=== PATIENT | female | born 1980 | race African-American/Black ===

== ENCOUNTER 2020-04-04 16:54 | Emergency (ER) | payer OTHER ==
[~2020-04-04] VITALS: Ht 162.6 cm; Wt 78.9 kg
[2020-04-04 16:55] VITALS: BP 167/105
[2020-04-04 17:44] LABS: APPEARANCE,URINE SLIGHTLY CLOUDY; BASOPHILS % (AUTO) 1.9 % (0.0-2.0); BILIRUBIN, URINE NEGATIVE (NEGATIVE); EOSINOPHILS % (AUTO) 1.6 % (0.0-3.0); GLUCOSE, URINE (UA) NEGATIVE (NEGATIVE); HEMATOCRIT 42.7 % (37.0-47.0); HEMOGLOBIN 13.4 G/DL (12.0-16.0); KETONES,URINE NEGATIVE (NEGATIVE); LEUKOCYTE ESTERASE ,URINE 1+ (NEGATIVE); LYMPHOCYTES % (AUTO) 50.6 % (20.0-45.0); MEAN CORPUSCULAR VOLUME 78 FL (80-99); MONOCYTES % (AUTO) 8.9 % (1.0-10.0); NITRITE,URINE NEGATIVE (NEGATIVE); PH,URINE 5 (4.5-8.0); PLATELET COUNT 290 K/UL (150-450); PROTEIN,URINE 1+ (NEGATIVE); RED BLOOD COUNT 5.47 M/UL (4.20-5.40); UROBILINOGEN,URINE NORMAL MG/DL (0.0-1.0); WHITE BLOOD COUNT 5.6 K/UL (4.8-10.8)
[2020-04-04 17:48] LABS: COLOR,URINE PALE YELLOW
[2020-04-04 17:57] LABS: ANION GAP 11 mmol/L (5-15); BLOOD UREA NITROGEN 12 mg/dL (7-18); CARBON DIOXIDE 23 MMOL/L (21-32); CHLORIDE 105 MMOL/L (98-107); CREATININE 0.8 MG/DL (0.55-1.30); POTASSIUM 4.4 MMOL/L (3.5-5.1); SODIUM 139 MMOL/L (136-145)
[2020-04-04 18:01] LABS: ALANINE AMINOTRANSFERASE 15 U/L (12-78); ALBUMIN 4.3 G/DL (3.4-5.0); ALBUMIN/GLOBULIN RATIO 0.9 (1.0-2.7); ALKALINE PHOSPHATASE 67 U/L (46-116); ASPARTATE AMINO TRANSFERASE 20 U/L (15-37); BILIRUBIN,TOTAL 0.2 MG/DL (0.2-1.0)
[2020-04-04] MEDS ORDERED: Omnipaque-300 100ml vial INJ PRN (18:15)
--- NOTE | 2020-04-04 19:26 | Diagnostic Imaging Report ---
EXAM: CT Abdomen and Pelvis With Intravenous Contrast CLINICAL HISTORY: Abdominal pain. Assess for appendicitis. TECHNIQUE: Axial computed tomography images of the abdomen and pelvis with intravenous contrast. CTDI is 7.8 mGy and DLP is 399.7 mGy-cm. One or more of the following dose reduction techniques were used: automated exposure control, adjustment of the mA and/or kV according to patient size, use of iterative reconstruction technique. COMPARISON: No previous studies. FINDINGS: Lung bases: Unremarkable. No mass. No consolidation. Pleural space: No pleural effusions noted. Heart: Heart is top normal in size. Mediastinum: Possible distal esophagitis. ABDOMEN: Liver: Diffuse fatty infiltration of the liver is noted. The liver and the spleen enhance uniformly. Gallbladder and bile ducts: Subsegmental gallstones. The gallbladder is otherwise unremarkable. No ductal dilation. Pancreas: See below. Spleen: See above. Adrenals: The adrenal glands, the head, body, tail of the pancreas are unremarkable. Kidneys and ureters: Both kidneys are shown to excrete contrast bilaterally without renal calculus or hydronephrosis. Stomach and bowel: Presumed ingested material in the stomach. Moderate quantity of stool throughout the colon. No evidence of bowel obstruction. No mucosal thickening. PELVIS: Appendix: The appendix is seen on sagittal image 47 and is unremarkable. Bladder: The bladder is underdistended. Reproductive: Finding of note is a 7.6 x 5.5 x 7 cm complex right adnexal cystic structure of uncertain etiology. The finding may represent a complex right ovarian cyst. Tubo-ovarian abscess is not excluded. Moreover, there is a 1.87 m left ovarian cyst appeared ABDOMEN and PELVIS: Intraperitoneal space: Pelvic fluid bolus. No free air. Bones/joints: No acute fracture. No dislocation. Soft tissues: Ischiorectal fat is clean. Vasculature: Flow is demonstrated within the celiac, SMA, the renal arteries, and AURELIA. No abdominal aortic aneurysm. Lymph nodes: No retroperitoneal lymphadenopathy No pelvic or inguinal lymphadenopathy. IMPRESSION: 1. The appendix is unremarkable. 2. Complex right adnexal cystic structure of uncertain etiology. This cyst measures upwards of 7 cm. 3. Tubo-ovarian abscess collection cannot be excluded. 4. Transvaginal imaging of the pelvis is advised for further assessment. 5. Fatty infiltration of the liver. 6. No evidence of bowel obstruction.
[2020-04-04] MEDS ORDERED: HYDROcodone/Acetamin 5/325 tab ORAL ONE (19:30)
--- NOTE | 2020-04-04 19:57 | Emergency Room Report ---
History of Present Illness General Chief Complaint: Abdominal Pain Source: Patient (Mary SpencerBethany CORREIA) Present Illness HPI Patient states that for the past 3 days she has had abdominal pain. The patient states she has a remote history of cholelithiasis, and pancreatitis. 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 She states that she had been drinking heavily for many years. She states that 3 years ago she had a rock bottom and was in the hospital for a month for severe pancreatitis and renal failure. She states she finally became serious about rehab and has not had any alcohol in over 3 years. She states that the pain that she presents for for the past few days feels similar to her previous cholelithiasis and pancreatitis. She notes that the pain comes and goes. She also noted that the symptoms did occur more severely after meals. However, the location of the pain is more in her right middle to lower abdomen. She denies nausea or vomiting. She denies fever chills. She states that she is approximately a week and a half from her expected menses. She denies abnormal vaginal discharge. She denies dysuria or hematuria. She denies chest pain or shortness of breath. She has no other complaints. (TjMary Edmond DO) Allergies: Coded Allergies: No Known Allergies (Unverified , 04/04/20) COVID-19 Screening Contact w/high risk pt: No Experienced COVID-19 symptoms?: No COVID-19 Testing performed NET SOFTWARE DEVELOPER: No (Mary Spencer DO) Patient History Past Medical History: see triage record, HTN, other - Hx of ETOH abuse. Social History: Denies: smoking, alcohol use, drug use Last Menstrual Period: 03/20/2020 Reviewed Nursing Documentation: PMH: Agreed; PSxH: Agreed (Mary Spencer DO) Nursing Documentation-PMH Past Medical History: No History, Except For Hx Hypertension: Yes (Mary Spencer DO) Review of Systems All Other Systems: negative except mentioned in HPI (Mary Spencer DO) Physical Exam Vital Signs Date Time Temp Pulse Resp B/P (MAP) Pulse Ox O2 Delivery O2 Flow Rate FiO2 04/04/20 16:55 97.5 87 19 167/105 (125) 100 Room Air Sp02 EP Interpretation: reviewed, normal General Appearance: no apparent distress, alert, GCS 15, non-toxic Head: normocephalic, atraumatic Eyes: bilateral eye normal inspection ENT: hearing grossly normal, normal pharynx, no angioedema, normal voice Neck: full range of motion, supple/symm/no masses Respiratory: no respiratory distress, no retraction, no accessory muscle use, speaking full sentences Gastrointestinal: normal bowel sounds, soft, non-distended, no guarding, no rebound, tenderness - TTP in the RLQ with referred pain to the RLQ Rectal: deferred Musculoskeletal: back normal, normal range of motion, gait/station normal, non- tender Neurologic: alert, motor strength/tone normal, oriented x3, sensory intact, responsive, speech normal Psychiatric: judgement/insight normal, memory normal, mood/affect normal, no suicidal/homicidal ideation Skin: no rash, normal color (Mary Spencer DO) Medical Decision Making Diagnostic Impression: Primary Impression: Ovarian cyst ER Course The patient presented with a history and exam with a differential diagnosis that included appendicitis, ovarian pathology, gallbladder pathology and pancreatitis. The physical exam for me was more concerning for appendicitis or ovarian pathology. I felt that I should obtain a CT of the abdomen pelvis which showed no evidence of appendicitis, however, there was a complicated cystic str ucture in the right adnexa. Therefore, I did obtain a transvaginal ultrasound and an abdominal ultrasound given the patient's history of cholelithiasis. Transvaginal ultrasound showed a cystic structure in the right axilla that did not delineate cyst versus abscess. The radiologist recommended MRI for further evaluation to delineate what this structure is. MRI of the abdomen is pending at the time of this dictation. The patient is turned over to Dr. Grant. Laboratory work-up to include CBC, CMP and urinalysis are unremarkable. Laboratory Tests Test 04/04/20 17:30 White Blood Count 5.6 K/UL (4.8-10.8) Red Blood Count 5.47 M/UL (4.20-5.40) H Hemoglobin 13.4 G/DL (12.0-16.0) Hematocrit 42.7 % (37.0-47.0) Mean Corpuscular Volume 78 FL (80-99) L Mean Corpuscular Hemoglobin 24.4 PG (27.0-31.0) L Mean Corpuscular Hemoglobin Concent 31.3 G/DL (32.0-36.0) L Red Cell Distribution Width 15.0 % (11.6-14.8) H Platelet Count 290 K/UL (150-450) Mean Platelet Volume 7.0 FL (6.5-10.1) Neutrophils (%) (Auto) 37.0 % (45.0-75.0) L Lymphocytes (%) (Auto) 50.6 % (20.0-45.0) H Monocytes (%) (Auto) 8.9 % (1.0-10.0) Eosinophils (%) (Auto) 1.6 % (0.0-3.0) Basophils (%) (Auto) 1.9 % (0.0-2.0) Urine Color Pale yellow Urine Appearance Slightly cloudy Urine pH 5 (4.5-8.0) Urine Specific [place] 1.025 (1.005-1.035) Urine Protein 1+ (NEGATIVE) H Urine Glucose (UA) Negative (NEGATIVE) Urine Ketones Negative (NEGATIVE) Urine Blood 1+ (NEGATIVE) H Urine Nitrite Negative (NEGATIVE) Urine Bilirubin Negative (NEGATIVE) Urine Urobilinogen Normal MG/DL (0.0-1.0) Urine Leukocyte Esterase 1+ (NEGATIVE) H Urine RBC 0-2 /HPF (0 - 2) Urine WBC 0-2 /HPF (0 - 2) Urine Squamous Epithelial Cells Many /LPF (NONE/OCC) H Urine Bacteria Occasional /HPF (NONE) Urine HCG, Qualitative Negative (NEGATIVE) Sodium Level 139 MMOL/L (136-145) Potassium Level 4.4 MMOL/L (3.5-5.1) Chloride Level 105 MMOL/L (98-107) Carbon Dioxide Level 23 MMOL/L (21-32) Anion Gap 11 mmol/L (5-15) Blood Urea Nitrogen 12 mg/dL (7-18) Creatinine 0.8 MG/DL (0.55-1.30) Estimated Glomerular Filtration Rate > 60 mL/min (>60) Glucose Level 93 MG/DL (74-106) Calcium Level 9.0 MG/DL (8.5-10.1) Total Bilirubin 0.2 MG/DL (0.2-1.0) Aspartate Amino Transferase (AST) 20 U/L (15-37) Alanine Aminotransferase (ALT) 15 U/L (12-78) Alkaline Phosphatase 67 U/L (46-116) Total Protein 8.9 G/DL (6.4-8.2) H Albumin 4.3 G/DL (3.4-5.0) Globulin 4.6 g/dL Albumin/Globulin Ratio 0.9 (1.0-2.7) L Lipase 61 U/L (73-393) L Urine Opiates Screen Negative (NEGATIVE) Urine Barbiturates Screen Negative (NEGATIVE) Phencyclidine (PCP) Screen Negative (NEGATIVE) Urine Amphetamines Screen Negative (NEGATIVE) Urine Benzodiazepines Screen Negative (NEGATIVE) Urine Cocaine Screen Negative (NEGATIVE) Urine Marijuana (THC) Screen Negative (NEGATIVE) (Mary Spencer DO) ER Course MRI abd: FINDINGS: Bowel: Unremarkable. No obstruction. No mucosal thickening. Bladder: Unremarkable. No stones. No mass. Reproductive: There is a septated cystic mass arising from the right ovary measuring 5.2 x 5.1 cm. The lesion demonstrates some fat component as well as some calcium. The calcium component is better visualized on the corresponding CT scan. The lesion is consistent with a cystic dermoid lesion. The left ovary measures 4.4 x 2.5 cm. There is an involuting left ovarian corpus luteal cyst which measures 2.0 x 1.4 cm. A small amount of adjacent fluid is present. The uterus measures 10.1 cm length is 6.0 cm AP dimension by 5.3 cm tr ansversely. The endometrium measures 8 mm in thickness. The junctional zone is well-defined. There is a 1.7 x 1.4 cm subserosal fibroid at the anterior uterus. Bones/joints: Unremarkable. No acute fracture. No dislocation. Soft tissues: Unremarkable. Vasculature: Unremarkable. No lower abdominal aortic aneurysm. Lymph nodes: Unremarkable. No enlarged lymph nodes. IMPRESSION: 1. No evidence of pelvic abscess. 2. 5.2 x 5.1 cm cystic dermoid lesion arising from the right ovary. 3. Involuting left ovarian corpus luteal cyst. 4. 1.7 cm uterine fibroid. Patient signed out to me by previous physician. She remained hemodynamically stable and neurovascularly intact. She did require another dose of IV pain medication. MRI resulted showing no evidence of pelvic abscess. Patient does have a 5 x 5 cm dermoid cyst on the right ovary. I spoke with the patient and she said that years ago she was told that she did have a large cyst on the right ovary at that time as well. 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 Given prescription for [place]. Discharged in stable condition. Given strict return precautions to come back to the emergency department if she has any worsening pain, vomiting, fevers. She expressed understanding and was discharged. (Zander Grant M.D.) CT/MRI/US Diagnostic Results CT/MRI/US Diagnostic Results : Imaging Test Ordered: CT abd/pelivs, Pelvis US, Abd US, MRI abdomen Impression IMPRESSION: 1. The appendix is unremarkable. 2. Complex right adnexal cystic structure of uncertain etiology. This cyst measures upwards of 7 cm. 3. Tubo-ovarian abscess collection cannot be excluded. 4. Transvaginal imaging of the pelvis is advised for further assessment. 5. Fatty infiltration of the liver. 6. No evidence of bowel obstruction. (Mary Spencer DO) Last Vital Signs Date Time Temp Pulse Resp B/P (MAP) Pulse Ox O2 Delivery O2 Flow Rate FiO2 04/04/20 17:05 87 19 Room Air 04/04/20 16:55 97.5 167/105 100 Status: improved (Mary Spencer DO) Disposition: HOME, SELF-CARE Condition: Improved Scripts Hydrocodone Bit/Acetaminophen 5-325* (NORCO 5-325 TABLET*) 1 Each Tablet 1 TAB ORAL Q4H PRN for For Pain, #10 TAB Prov: Zander Grant M.D. 04/05/20 Referrals: [facility] (PCP) Mary Spencer DO Apr 04, 2020 19:57 Zander Grant M.D. Apr 05, 2020 01:40
--- NOTE | 2020-04-04 20:36 | Diagnostic Imaging Report ---
EXAM: US Abdomen Complete CLINICAL HISTORY: PAIN TECHNIQUE: Real-time ultrasound of the abdomen with image documentation. COMPARISON: None FINDINGS: Liver: The liver measures up to 15.8 cm. No intrahepatic bile duct dilation. Gallbladder: The gallbladder contains a 7 Donny stone. There is no gallbladder wall thickening. The sonographic Whitfield sign was not elicited. Common bile duct: The common bile duct measures up to 4 mm. No stones. No dilation. Pancreas: Unremarkable as visualized. Kidneys: Unremarkable. No stones. No solid mass. No hydronephrosis. Spleen: Unremarkable. No splenomegaly. Aorta: Unremarkable. No aneurysm. Inferior vena cava: Unremarkable. IMPRESSION: Cholelithiasis without evidence of acute cholecystitis..
--- NOTE | 2020-04-04 20:42 | Diagnostic Imaging Report ---
EXAM: US Pelvis Transabdominal, Complete CLINICAL HISTORY: PAIN TECHNIQUE: Real-time complete transabdominal pelvic ultrasound with image documentation. COMPARISON: 04/04/2020. FINDINGS: Uterus/cervix: Endometrial stripe measures 1.2 cm. Uterus measures 9. 8 cm in length. No myometrial mass. Right ovary: A 5.4 x 3.4 cm complex right adnexal cystic structure is noted, adjacent to the right ovary, of uncertain etiology. Flow noted to the ovaries. Right ovary measures 2.5 x 1.8 x 1.9 cm. Normal blood flow. Left ovary: Left ovary measures 2.9 x 1.6 x 1.8 cm. Free fluid: No free fluid. Bladder: Unremarkable as visualized. Wall is normal thickness for degree of distention. IMPRESSION: 1. Complex cystic structure right adnexa, adjacent to right ovary, of uncertain etiology. 2. Flow to the adnexal regions noted bilaterally. 3. Magnetic resonance imaging of the pelvis with gadolinium administration is suggested for further correlation.
[2020-04-04] MEDS ORDERED: Gadavist 7.5mMol/7.5ml vial IV PRN (22:15)
--- NOTE | 2020-04-05 01:04 | Diagnostic Imaging Report ---
EXAM: MR Pelvis Without and With Intravenous Contrast CLINICAL HISTORY: ABSCESS TECHNIQUE: Multiplanar magnetic resonance images of the pelvis without and with intravenous contrast. COMPARISON: Correlation with CT pelvis and ultrasound of the pelvis performed earlier the same day. FINDINGS: Bowel: Unremarkable. No obstruction. No mucosal thickening. Bladder: Unremarkable. No stones. No mass. Reproductive: There is a septated cystic mass arising from the right ovary measuring 5.2 x 5.1 cm. The lesion demonstrates some fat component as well as some calcium. The calcium component is better visualized on the corresponding CT scan. The lesion is consistent with a cystic dermoid lesion. The left ovary measures 4.4 x 2.5 cm. There is an involuting left ovarian corpus luteal cyst which measures 2.0 x 1.4 cm. A small amount of adjacent fluid is present. The uterus measures 10.1 cm length is 6.0 cm AP dimension by 5.3 cm transversely. The endometrium measures 8 mm in thickness. The junctional zone is well-defined. There is a 1.7 x 1.4 cm subserosal fibroid at the anterior uterus. Bones/joints: Unremarkable. No acute fracture. No dislocation. Soft tissues: Unremarkable. Vasculature: Unremarkable. No lower abdominal aortic aneurysm. Lymph nodes: Unremarkable. No enlarged lymph nodes. IMPRESSION: 1. No evidence of pelvic abscess. 2. 5.2 x 5.1 cm cystic dermoid lesion arising from the right ovary. 3. Involuting left ovarian corpus luteal cyst. 4. 1.7 cm uterine fibroid.
[2020-04-05] MEDS ORDERED: Morphine Sulfate 4mg/ml Inj (IV USE ONLY) IVP ONE (01:15)
[2020-04-05] MEDS ORDERED: NORCO 5-325 TA1 EAC1 ORAL (01:22)
[2020-04-05 01:50] VITALS: BP 139/79
== END 2020-04-05 01:50 | disposition home or self-care (01) ==
LOC: EMR 17:30
DX: D27.1 Benign neoplasm of left ovary (principal); D27.0 Benign neoplasm of right ovary; I10 Essential (primary) hypertension
CPT/HCPCS: 36415; 72197; 74177; 76700; 76830; 76856; 80053; 80307; 81003; 81025; 83690; 85025; 96361; 96374; A9585; J2270; J7030; Q9965; Z7502; 99285